=== PATIENT | female | born 1960 | race Caucasian/White ===

== ENCOUNTER 2016-03-25 20:06 | Emergency (ER) | payer MEDICAID, OTHER ==
--- NOTE | 2016-03-25 22:28 | UC ---
Eye Complaint HPI - HPI Summary HPI Summary: left eye discomfort-has a a noticeable increase in the amount of erythema around left eye-extends down in to the cheek now--does have some decrease vision in left eye - History of Current Complaint Chief Complaint: UCEye Stated Complaint: EYE IRRITATION Time Seen by Provider: 03/25/16 22:03 Hx Obtained From: Patient ?: No Onset/Duration: Gradual Onset, Lasting Days - 2, Worse Since - today Timing: Constant Severity Initially: Mild Severity Currently: Moderate Pain Intensity: 5 Pain Scale Used: 0-10 Numeric Location of Injury: Periorbital - left Character: Throbbing Aggravating Factor(s): Nothing Alleviating Factor(s): Nothing Associated Signs And Symptoms: Positive: Vision Impairment Left - Allergies/Home Medications Allergies/Adverse Reactions: Allergies Allergy/AdvReac Type Severity Reaction Status Date / Time Cephalexin [From Keflex] Allergy Rash Verified 03/25/16 21:23 Home Medications: Home Medications Duloxetine HCl 60 mg PO DAILY 03/25/16 [History Confirmed 03/25/16] Ibuprofen TAB* [Advil TAB*] 400 mg PO PRN 03/25/16 [History] Levothyroxine TAB* [Synthroid 88 MCG TAB*] 88 mcg PO DAILY 03/25/16 [History Confirmed 03/25/16] Losartan Potassium 100 mg PO DAILY 03/25/16 [History Confirmed 03/25/16] Mirtazapine TAB* [Remeron TAB*] 15 mg PO BEDTIME 03/25/16 [History Confirmed 10/31] Omeprazole CAP* [Prilosec CAP* 20 MG] 40 mg PO DAILY 03/25/16 [History Confirmed 03/25/16] PMH/Surg Hx/FS Hx/Imm Hx Previously Healthy: No Endocrine History Of: Reports: Thyroid Disease Cardiovascular History Of: Reports: Hypertension - Surgical History Surgical History: Yes Surgery Procedure, Year, and Place: 5 BACK SURGERIES, 3 C-SECTIONS - Family History Known Family History: Positive: None Family History: no reported cardiovascular issues in family lineage - Social History Occupation: Employed Full-time Lives: Alone Alcohol Use: None Substance Use Type: None Smoking Status (MU): Current Every Day Smoker Type: Cigarettes Amount Used/How Often: 1 PPD Review of Systems Constitutional: Negative Skin: Negative Eyes: Blurred Vision - left, Other - periorbital erythema, swelling and tenderness ENT: Negative Respiratory: Negative Cardiovascular: Negative Gastrointestinal: Negative Genitourinary: Negative Motor: Negative Neurovascular: Negative Musculoskeletal: Negative Neurological: Negative Psychological: Negative All Other Systems Reviewed And Are Negative: Yes Physical Exam Triage Information Reviewed: Yes Appearance: Well-Appearing, Well-Nourished, Pain Distress - mild Vital Signs: Initial Vital Signs Temp 95.3 F 03/25/16 21:18 Pulse 84 03/25/16 21:18 Resp 18 03/25/16 21:18 BP 156/95 03/25/16 21:18 Pulse Ox 99 03/25/16 21:18 Vital Signs Reviewed: Yes Eye Exam: Other Eyes: Positive: Other: - erythema arou ENT Exam: Normal ENT: Positive: Normal ENT inspection, Hearing grossly normal, Pharynx normal, TMs normal. Negative: Nasal congestion, Nasal drainage, Tonsillar swelling, Tonsillar exudate, Trismus, Muffled/hoarse voice Neck exam: Normal Neck: Positive: Supple, Nontender, No Lymphadenopathy Respiratory Exam: Normal Respiratory: Positive: Chest non-tender, Lungs clear, Normal breath sounds, No respiratory distress, No accessory muscle use Cardiovascular Exam: Normal Cardiovascular: Positive: RRR, No Murmur, Pulses Normal, Brisk Capillary Refill Musculoskeletal Exam: Normal Musculoskeletal: Positive: Strength Intact, ROM Intact, No Edema Neurological Exam: Normal Neurological: Positive: Alert, Muscle Tone Normal Psychological Exam: Normal Skin Exam: Normal Eye Complaint Course/Dx - Course Course Of Treatment: transfer to [facility] for higher level of care - Differential Dx/Diagnosis Differential Diagnosis/HQI/PQRI: Periorbital Cellulitis, Orbital Cellulitis Provider Diagnoses: vision deficit left eye/cellulitis - Physician Notification/Consults Time Discussed With Above Provider: 22:35 Instructed by Provider To: Transfer Discharge - Discharge Plan Condition: Fair Disposition: AGAINST MEDICAL ADVICE Referrals: Sandra Rodriguez MD [Primary Care Provider] -
[2016-03-25 22:45] VITALS: BP 134/84
== END 2016-03-25 22:35 | disposition short-term general hospital (02) ==
LOC: UCEAST 20:06
DX: H53.8 Other visual disturbances (principal); L03.213 Periorbital cellulitis; Z88.1 Allergy status to other antibiotic agents; F17.210 Nicotine dependence, cigarettes, uncomplicated
CPT/HCPCS: 99212; G0463

== ENCOUNTER 2016-03-25 22:52 | Emergency (ER) | payer MEDICAID, OTHER ==
[2016-03-26] MEDS ORDERED: Fluorescein Sodium TOPICAL* 1 MG TEST OPHTHALMIC ONE (00:07)
[2016-03-26] MEDS ORDERED: Proparacaine 0.5% OPHTH.SOL* 15 ML BTL LEFT EYE ONE (00:07)
[2016-03-26 01:04] VITALS: BP 142/94
--- NOTE | 2016-03-26 05:06 | ED ---
Throat Pain/Nasal Congestion - HPI Summary HPI Summary: Patient woke up 3 days ago with L eye irrtation, began itching it and it became red. Woke up this morning with crusting. Denies headache, systemic symptoms, trauma, vision changes. No allev factors attemtped. No aggrav factors. 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 Onset/Duration: Gradual Onset - Allergies/Home Medications Allergies/Adverse Reactions: Allergies Allergy/AdvReac Type Severity Reaction Status Date / Time Cephalexin [From Keflex] Allergy Rash Verified 03/25/16 21:23 PMH/Surg Hx/FS Hx/Imm Hx Previously Healthy: Yes Endocrine/Hematology History: Reports: Hx Thyroid Disease Cardiovascular History: Reports: Hx Hypertension - Surgical History Surgery Procedure, Year, and Place: 5 BACK SURGERIES, 3 C-SECTIONS Infectious Disease History: No Infectious Disease History: Denies: Traveled Outside the [place] in Last 30 Days - Social History Alcohol Use: None Substance Use Type: Reports: None Smoking Status (MU): Current Every Day Smoker Type: Cigarettes Amount Used/How Often: 1 PPD Review of Systems Positive: Drainage. Negative: Photophobia, Blurred Vision, Erythema Negative: Nasal Discharge Negative: Headache All Other Systems Reviewed And Are Negative: Yes Physical Exam Triage Information Reviewed: Yes Vital Signs On Initial Exam: Initial Vitals Temp Pulse Resp BP Pulse Ox 98 F 81 16 158/98 100 03/25/16 22:54 03/25/16 22:54 03/25/16 22:54 03/25/16 22:54 03/25/16 22:54 Vital Signs Reviewed: Yes Appearance: Positive: Well-Appearing, No Pain Distress, Well-Nourished Skin: Positive: Warm, Skin Color Reflects Adequate Perfusion, Dry Head/Face: Negative: TMJ Tenderness Eyes: Positive: EOMI, FIDELINA, Discharge, Other: - Bulbar conjunctival injection sparing the limbus. Deep clear anterior chamber. Soft globes. No foreign body underneath the lids on eversion. No fluorescein uptake or Mehnaz's sign. ENT: Positive: Normal ENT inspection, Hearing grossly normal, Pharynx normal, TMs normal. Negative: Pharyngeal erythema, Nasal congestion, Nasal drainage, Tonsillar swelling, Tonsillar exudate Neck: Positive: Supple, Nontender, No Lymphadenopathy Respiratory/Lung Sounds: Positive: Clear to Auscultation, Breath Sounds Present Cardiovascular: Positive: Normal, RRR, Pulses are Symmetrical in both Upper and Lower Extremities Neurological: Positive: Normal, Sensory/Motor Intact, Alert, Oriented to Person Place, Time, CN Intact II-III, Reflexes Intact Diagnostics - Vital Signs Vital Signs Temp Pulse Resp BP Pulse Ox 03/26/16 01:03 98.0 F 80 16 142/94 03/25/16 22:54 98 F 81 16 158/98 100 - Laboratory Lab Statement: Any lab studies that have been ordered have been reviewed, and results considered in the medical decision making process. EENT Course/Dx - Differential Diagnoses Differential Diagnoses: Abrasion, Conjunctivitis, Corneal Abrasion - Diagnoses Provider Diagnoses: Conjunctivitis Discharge - Discharge Plan Condition: Stable Disposition: HOME Prescriptions: Erythromycin (Ophth) [Ilotycin] 5 mg OP TID #7 oin Referrals: Romain Lynch MD [Medical Doctor] - 3 Days Sandra Rodriguez MD [Primary Care Provider] - 3 Days
== END 2016-03-26 01:03 | disposition home or self-care (01) ==
LOC: ED 22:52
DX: H10.9 Unspecified conjunctivitis (principal); F17.210 Nicotine dependence, cigarettes, uncomplicated
CPT/HCPCS: 99282; A9270-GY

== ENCOUNTER 2023-05-02 08:38 | Inpatient (IN) ==
[2023-05-02] MEDS ORDERED: Nicotine GUM 2MG FRUIT FLAVOR PO PRN (21:53)
[2023-05-03] MEDS: Enoxaparin 40 MG/0.4 ML SYR SUBCUT SCH (08:14)
[2023-05-04 06:44] LABS: ABS Basophils 0.1 10^3/uL (0.0-0.1); ABS Eosinophils 0.1 10^3/uL (0.0-0.5); ABS Lymphocytes 2.3 10^3/uL (1.0-4.8); ABS Monocytes 1.1 10^3/uL (0.0-0.9); ABS Neutrophils 8.3 10^3/uL (1.5-7.6); ABS Nucleated RBC 0.01 10^3/ul; Eosinophil % 0.9 %; Hematocrit 44.5 % (35-45); Hemoglobin 14.5 g/dL (11.5-14.3); Lymphocyte % 19.1 %; Mean Corpuscular Hemoglobin 27.9 pg (27-33); Mean Corpuscular Hgb Conc 32.5 g/dL (31-36); Mean Corpuscular Volume 85.7 fL (80-97); Mean Platelet Volume 7.9 fL (7.5-11.2); Platelet Count 347 10^3/uL (150-450); Red Cell Distribution Width 15.9 % (12-17); White Blood Count 11.9 10^3/uL (3.8-11.8)
[2023-05-04 07:42] LABS: Albumin 3.9 g/dL (3.2-5.2); Albumin/Globulin Ratio 1.4 (1-3); Calcium 9.5 mg/dL (8.6-10.3); Creatinine, Serum 0.87 mg/dL (0.51-0.95); Globulin 2.7 g/dL (2-4); Potassium 3.9 mmol/L (3.5-5.0); Total Bilirubin 0.6 mg/dL (0.2-1.0); Total Protein 6.6 g/dL (6.4-8.9); eGFR CKD-EPI 75.8 (>60)
[2023-05-04] MEDS: Aspirin EC 81 mg TAB.EC (enteric coated) PO SCH (08:07)
[2023-05-06] MEDS ORDERED: Lidocaine PATCH 5% PATCH TRANSDERM PRN (11:35)
[2023-05-07] MEDS: Senna TAB 8.6 mg TAB PO PRN (21:28)
[2023-05-08] MEDS: Magnesium Hydroxide LIQ 30 ML UDC PO PRN (09:17)
[2023-05-08] MEDS ORDERED: Sodium Phosphate ADULT ENEMA 133 ML BTL PR PRN (19:33)
[2023-05-10 04:04] VITALS: BP 128/85
== END 2023-05-10 14:30 | disposition home or self-care (01) | DRG 44 ==
LOC: PMRU 17:17
PROVIDERS: ADMIT Physical Medicine & Rehabilitation; ATTEND Physical Medicine & Rehabilitation